=== PATIENT | female | born 1990 | race Two or more races ===

== ENCOUNTER 2019-02-03 20:15 | Outpatient (CLI) | payer SELFPAY ==
[~2019-02-03] VITALS: Ht 162.6 cm; Wt 83.8 kg
[2019-02-03 20:34] VITALS: BP 108/62; PULSE 75; RESP 17; Ht 162.6 cm; Wt 83.8 kg
--- NOTE | 2019-02-03 21:41 | PN ---
Triage Information Date/Time Reason for visit: DFM Weeks of Gestation 36 weeks and 6 days /Para Diabetes: none Hypertention: none Objective Vital Signs Date Temp Pulse Resp B/P (MAP) Pulse Ox O2 O2 Flow FiO2 Time Delivery Rate 02/03/19 98.1 75 17 108/62 Room Air 20:34 (77) Heart Rate: 120's Heart Rate Comments Reactive Exam Cervix closed Results/Medications Imaging Results BPP 04/15 Disposition: Discharge Assessment/Plan While being monitored, patient feels the baby move well. Follow up in office on 02/05/2019. kick count. RAMÓN BRAGG MD February 03, 2019 21:41
--- NOTE | 2019-02-03 23:38 | TRIAGE ---
OB Triage Datetime Report Generated by CPN: 02/03/2019 23:38 Datetime: 02/03/2019 21:37 Labor Evaluation Frequency: 4-7 Monitor Mode: External Duration (sec)2399: 50-90 Quality: Mild Resting Tone [place]: Relaxed Contraction Comments: PT DENIES FEELING UC'S Contraction Comments: TOCO REMOVED Heart Rate FHR Baseline Rate: 145 Monitor Mode: External US Variability: Moderate 6-25 bpm Accelerations: 15X15 Decelerations: None Category: Category I Comments: US REMOVED Datetime: 02/03/2019 21:00 Contraction Comments: TOCO REMOVED FOR ULTRASOUND Comments: UNABLE TO ASSESS; US REMOVED FOR ULTRASOUND Datetime: 02/03/2019 20:32 Time of Arrival: 02/03/2019 20:06 EGA: 36.6 Arrived By: Ambulatory Arrived From: Office Chief Complaint: DFM; PT ALSO STATES LOWER ABDOMINAL PRESSURE Movement: Decreased Contractions: Occasional Rupture of Membranes: Denies Vaginal Discharge: Present Recent Sexual Intercouse: Denies Abdominal Trauma: Not Applicable Patient Complaints: Other Datetime: 02/03/2019 20:30 Stage of : OB Triage Assessment Type: Triage Maternal Assessment Level of Consciousness: Fully Conscious DTR's/Clonus: DTRs 2+; No Clonus Headache: Denies Blurred Vision: No Respiratory Effort: Unlabored; Regular Rhythm; Equal Expansion Breath Sounds, Left: Clear and Equal Breath Sounds, Right: Clear and Equal Nausea/Vomiting: Denies RUQ Epigastric Pain: Denies Lower Extremities Edema: None Degree: None Upper Extremities Edema: None Degree: None Facial Edema: None Temperature Route: Oral Fall Risk Assessment History of Falling: (0) No Secondary Diagnosis: (0) No Ambulatory Aid: (0) Bedrest/Nurse Assist IV Therapy: (0) No Gait: (0) Normal/Bedrest/Immobile Mental Status: (0) Oriented to Own Ability Fall Score: 0 Fall Risk Score Definition: No Risk: No action required Pain Assessment Pain Scale: 6 Pain Presence: Constant Pain Type: Pressure Pain Location: Abdomen Datetime: 02/03/2019 20:28 Contraction Comments: TOCO APPLIED Comments: US APPLIED
== END 2019-02-03 21:43 | disposition home or self-care (01) ==
LOC: OBT 20:15 → L-D 20:18 → OBT 21:43
PROVIDERS: ATTEND Obstetrics & Gynecology
DX: O36.8130 Decreased fetal movements, third trimester, not applicable or unspecified (principal); Z3A.36 36 weeks gestation of pregnancy
CPT/HCPCS: 76818; G0463

== ENCOUNTER 2019-02-12 04:50 | Inpatient (IN) | payer SELFPAY ==
[~2019-02-12] VITALS: Ht 162.6 cm; Wt 85.5 kg
[2019-02-12] MEDS ORDERED: FERR325T5 PO (05:23)
[2019-02-12] MEDS ORDERED: PNV11TAB PO (05:23)
[2019-02-12 05:24] VITALS: Ht 162.6 cm; Wt 85.5 kg
[2019-02-12 05:25] VITALS: BP 97/68; PULSE 75; RESP 18
[2019-02-12] MEDS ORDERED: LACTATED RINGER'S 1,000 ML IV SCH ×2 (05:59→14:00)
[2019-02-12] MEDS ORDERED: CARBOPROST 250 MCG INJ IM PRN ×2 (06:00→14:00)
[2019-02-12] MEDS ORDERED: OXYTOCIN 30 UNITS/LR 500 ML IV PRN ×2 (06:00→14:00)
[2019-02-12] MEDS ORDERED: METHYLERGONOVINE 0.2 MG INJ IM PRN ×2 (06:00→14:00)
[2019-02-12] MEDS ORDERED: MISOPROSTOL 200 MCG TAB PR PRN ×2 (06:00→14:00)
[2019-02-12] MEDS ORDERED: OXYTOCIN 30 UNITS/LR 500 ML IV SCH ×2 (07:00→14:00)
[2019-02-12] MEDS ORDERED: CEFAZOLIN 2 GM/50 ML (PMX) 50 ML IVPB SCH (07:00)
--- NOTE | 2019-02-12 08:26 | HP ---
Date/Time of Note Date/Time of Note DATE: 02/12/19 TIME: 08:24 OB - History Hx of Present Chief Complaint: contractions Estimated Due Date: Feb 25, 2019 : 2 Para: 1 Spontaneous : 0 Therapeutic : 0 Care: Good Care Ultrasounds: Normal mid trimester US Obstetrical Complications: None Medical Complications: None Past Family/Social History * Past Medical, Surgical, Family and Obstetric Histories reviewed from chart. GBS Status: Negative OB Admission Exam Vital Signs Vital Signs Vital Signs Date Temp Pulse Resp B/P (MAP) Pulse Ox O2 O2 Flow FiO2 Time Delivery Rate 02/12/19 98.3 75 18 97/68 (78) Room Air 05:25 Physical Exam HEENT: WNL Heart: Rhythm Normal Lungs: Clear, Equal Abdomen: WNL Extremities: Normal Reflexes: Normal Cervical Dilatation: 2cm Effacement: 50% Station: -1 Membranes: Intact Heart Rate: 120's Accelerations: Accelerations Present Decelerations: No Decelerations Varibility: Moderate Contractions on Admission: < 5 Minutes Apart Last 72 hours Lab Results CBC & BMP 02/12/19 05:50 OB Assessment/Plan Reason for admission: section Plan: Section RAMÓN BRAGG MD Feb 12, 2019 08:26
[2019-02-12] MEDS ORDERED: AZITHROMYCIN 500MG/NS (PMX) 250 ML IVPB ONE (08:30)
--- NOTE | 2019-02-12 08:41 | PREAC ---
Date/Time of Note Date/Time of Note DATE: 02/12/19 TIME: 08:40 Anesthesia Eval and Record Evaluation Time Pre-Procedure Interview DATE: 02/12/19 TIME: 08:40 Age 28 Sex female NPO: 8 hrs Preoperative diagnosis previous c section Planned procedure repeat c section Past Medical History Past Medical History: None Surgery & Anesthesia Issues No known issue Meds Anticoagulation: No Beta Minal within 24 hr: No Reason Beta Minal not given: Pt. not on B-Minal Reported Medications Ferrous Sulfate (Ferrous Sulfate) 325 Mg Tablet.dr, 325 MG PO DAILY 02/12/19 [id number] ( ) 1 Each Tablet, 1 TAB PO DAILY, TAB 02/12/19 Current Medications Lactated Ringer's 1,000 ml @ 125 mls/hr Q8H IV Last administered on 02/12/19at 06:42; Admin Dose 125 MLS/HR; Start 02/12/19 at 05:59 Oxytocin/Lactated Ringer's 500 ml @ 0 mls/hr ONCE PRN IV .VAGINAL BLEEDING; Start 02/12/19 at 06:00 Methylergonovine Maleate (Methergine) 0.2 mg ONCE PRN IM .VAGINAL BLEEDING; Start 02/12/19 at 06:00 Carboprost Tromethamine (Hemabate) 250 mcg ONCE PRN IM .VAGINAL BLEEDING; Start 02/12/19 at 06:00 Misoprostol (Cytotec) 1,000 mcg ONCE PRN AR .VAGINAL BLEEDING; Start 02/12/19 at 06:00 Cefazolin Sodium/ Dextrose 50 ml @ 100 mls/hr ONCE IVPB ; Start 02/12/19 at 07:00 Oxytocin/Lactated Ringer's 500 ml @ 125 mls/hr POST IV ; Start 02/12/19 at 07:00 Azithromycin 250 ml @ 250 mls/hr ONCE ONCE IVPB ; Start 02/12/19 at 08:30; Stop 02/12/19 at 09:29 Meds reviewed: Yes Allergies Coded Allergies: No Known Allergy (Unverified , 02/12/19) Allergies Reviewed: Yes Labs/Studies Labs Reviewed: Reviewed by anesthesiologist Result Diagram: 02/12/19 0550 Laboratory Tests 02/12/19 05:50 Blood Bank Test 02/12/19 05:50 Antibody Screen NEGATIVE Blood Type A POSITIVE Rh Immune Globulin Candidate NO test: N/A Pre-procedure Exam Last vitals Vital Signs Date Temp Pulse Resp B/P (MAP) Pulse Ox O2 O2 Flow FiO2 Time Delivery Rate 02/12/19 98.3 75 18 97/68 (78) Room Air 05:25 Airway: Adequate mouth opening, Adequate thyromental dist Mallampati: Mallampati II Teeth: Normal Lung: Normal Heart: Normal ASA Physical Status ASA physical status: 2 Emergency: None Pre-operative Attestations Prior to commencing anesthesia and surgery, the patient was re-evaluated, there was verification of: *The patient's identity *The results of appropriate recent lab work and preoperative vital signs *The above evaluation not changing prior to induction *Anesthetic plan, risk benefits, alternative and complications discussed with patient/family; questions answered; patient/family understands, accepts and wishes to proceed. ROLAN NAJERA DO Feb 12, 2019 08:41
[2019-02-12] MEDS ORDERED: FENTAnyl 50 MCG/ML VIAL ONE (08:42)
[2019-02-12] MEDS ORDERED: morphine SULFATE/PF (10 MG/10 ML) INJ ONE (08:42)
[2019-02-12] MEDS ORDERED: ONDANSETRON 4 MG INJ ONE (08:55)
[2019-02-12] MEDS ORDERED: DEXAMETHASONE 4 MG/ML 1 ML INJ ONE (08:55)
[2019-02-12] MEDS ORDERED: FAMOTIDINE 20 MG INJ ONE (08:56)
[2019-02-12] MEDS ORDERED: DIPHENHYDRAMINE 50 MG INJ ONE (08:56)
[2019-02-12] MEDS ORDERED: ONDANSETRON 4 MG INJ IV PRN (09:00)
[2019-02-12] MEDS ORDERED: KETOROLAC 30 MG INJ IV PRN (09:00)
[2019-02-12] MEDS ORDERED: HYDROmorphONE 0.5 MG/0.5 ML SYG IV PRN ×2 (09:00)
[2019-02-12] MEDS ORDERED: DIPHENHYDRAMINE 50 MG INJ IV PRN (09:00)
[2019-02-12] MEDS ORDERED: ZOLPIDEM 5 MG TAB PO PRN (09:00)
[2019-02-12] MEDS ORDERED: NALOXONE (0.4 MG/ML) INJ IV PRN (09:00)
[2019-02-12] MEDS ORDERED: OXYTOCIN 30 UNITS/LR 500 ML IV ONE ×2 (09:12→09:51)
[2019-02-12] MEDS ORDERED: PROPOFOL 20 ML ONE (09:12)
[2019-02-12] MEDS ORDERED: PHENYLephrine (100 MCG/ML) 10ML SYG ONE (09:12)
[2019-02-12] MEDS ORDERED: MIDAZOLAM 1 MG/ML 2 ML INJ ONE (09:30)
--- NOTE | 2019-02-12 09:57 | PAC ---
Date/Time of Note Date/Time of Note DATE: 02/12/19 TIME: 09:57 Post-Anesthesia Notes Post-Anesthesia Note Last documented vital signs Vital Signs Date Temp Pulse Resp B/P (MAP) Pulse Ox O2 O2 Flow FiO2 Time Delivery Rate 02/12/19 98 75 18 95/66 Room Air 0957 Activity: WNL Respiratory function: WNL Cardiovascular function: WNL Mental status: Baseline Pain reasonably controlled: Yes Hydration appropriate: Yes Nausea/Vomiting absent: Yes ROLAN NAJERA DO Feb 12, 2019 09:57
[2019-02-12 13:30] VITALS: BP 95/51; PULSE 62; RESP 16
[2019-02-12] MEDS ORDERED: LANOLIN HPA 1 PKT TOP PRN (14:00)
[2019-02-12] MEDS ORDERED: OXYCODONE/ACETAMINOPHEN (5/325) TAB PO PRN (14:00)
[2019-02-12 15:42] VITALS: BP 96/61; PULSE 56; RESP 17
--- NOTE | 2019-02-12 17:45 | OPR ---
Operative Report Planned Procedure Procedure date Feb 12, 2019 Procedure(s) Repeat low transverse Performed by Ramón Bragg MD Driver Education Instructor: CAMRYN MCNALLY MD Anesthesiologist: ROLAN NAJERA DO Pre-procedure diagnosis 38+ weeks, previous and labor contractions [id number] Anesthesia Type: [id number] spinal Post-Procedure Post-procedure diagnosis Same Findings Live Baby, Apgars 9 and 9 Estimated Blood Loss: other (500 ml) Specimen(s) Placenta Grafts/Implant(s) none Complication(s) none Pt Condition post procedure: stable Disposition: PACU Procedure Description After spinal anesthesia had been dosed and tested, the patient was placed supine on the Operating Room table and prepped and draped in the usual sterile fashion for a section. A Pfannenstiel incision was made through the abdomen and carried down to the level of the fascia. The fascia was incised transversely and then the rectus muscle was dissected off the fascia and split bluntly in the midline. The peritoneum was the entered bluntly. The bladder flap was created and then a low segment transverse incision was made with a knife on the uterus until the amniotic fluid was encountered. The incision was widened with bandage scissors. A hand was inserted elevating the vertex and then the head delivered with assistance of fundal pressure.. The nares and oropharynx were bulb suctioned, and the remainder of the was delivered out of the maternal abdomen. . The cord was doubly clamped and cut, and the infant handed off to the awaiting resuscitation team including who was present for delivery. The placenta was then manually extracted and the interior uterus was cleaned with a dry lap sponge. The uterus was exteriorized, and the incision of the uterus closed with a running interlocking stitch of Monocryl suture. The uterus was replaced in the maternal abdomen. The abdomen was cleared of clots. The peritoneum was closed with 2-0 Vicryl. The fascia was closed with a running suture of #1 Vicryl suture meeting in the midline. The subcutaneous tissue was made hemostatic with Bovie cautery, and the skin approximated using amrit. The patient tolerated the procedure well. All sponge and instrument counts were correct. She was taken to the recovery room in stable condition. RAMÓN BRAGG MD Feb 12, 2019 17:44
[2019-02-12] MEDS: SENNA/DOCUSATE NA (8.6MG/50MG) TAB PO SCH (21:00)
[2019-02-12] MEDS: LACTATED RINGER'S 1,000 ML IV SCH (23:20)
[2019-02-13 04:00] VITALS: BP 98/52; PULSE 62; RESP 18
[2019-02-13] MEDS: LACTATED RINGER'S 1,000 ML IV SCH (07:30)
[2019-02-13 07:50] VITALS: BP 93/54; PULSE 77; RESP 18
[2019-02-13] MEDS: SENNA/DOCUSATE NA (8.6MG/50MG) TAB PO SCH ×2 (08:58→21:33)
[2019-02-13] MEDS: OXYCODONE/ACETAMINOPHEN (5/325) TAB PO PRN (08:58)
[2019-02-13] MEDS: IBUPROFEN 800 MG TAB PO SCH ×2 (13:53→21:37)
[2019-02-13 15:18] VITALS: BP 95/61; PULSE 86; RESP 18
--- NOTE | 2019-02-13 15:34 | DELSUM ---
Delivery Summary A-C Datetime Report Generated by CPN: 02/13/2019 15:34 DELIVERY PERSONNEL Tea Leaf Reader: Erickgett, Tarah MATERNAL INFORMATION Delivery Anesthesia: Spinal Medications in Delivery: pitocin Delivery QBL (ml): 500 Placenta Cultured: No Maternal Complications: Other Other Maternal Complications: ovarian cyst removal, breast augmentation, hx of pp depression w last preg, pc/s for macro in [place] RN Comments: baby born with left ft turned. parents told prenatally via ultasound. LABOR SUMMARY EDC: 02/25/2019 00:00 No. Babies in Womb: 1 Attempted: No Labor Anesthesia: None LABOR INFORMATION Reason for Induction: Not Applicable Onset of Labor: 02/12/2019 03:00 Oxytocin: N/A Group B Beta Strep: Negative Antibiotics # of Doses: 1 Antibiotics Time of Last Dose: 02/12/2019 08:00 Steroids Given: None Reason Steroids Not Administered: Not Applicable MEMBRANES Membranes Rupture Method: Artificial Rupture of Membranes: 02/12/2019 09:16 Length of Rupture (hr): 0.02 Amniotic Fluid Color: Clear Amniotic Fluid Amount: Moderate Amniotic Fluid Odor: Normal STAGES OF LABOR Stage 3 hr: 0 Stage 3 min: 0 Total Time in Labor hr: 6 Total Time in Labor min: 17 CSECTION DELIVERY Primary Indication: Repeat Elective Secondary Indication: Repeat Elective CSection Urgency: Elective CSection Incidence: Repeat Labor: Labor Elective: Elective CSection Incision: Lower Uterine Transverse BABY A INFORMATION Delivery Date/Time: 02/12/2019 09:17 Method of Delivery: Born in Route : No : N/A Forceps: N/A Vacuum Extraction: N/A Shoulder Dystocia : No SHOULDER DYSTOCIA BABY A Infant Delivery Date/Time: 02/12/2019 09:17 PRESENTATION/POSITION BABY A Presentation: Cephalic Cephalic Presentation: Vertex Vertex Position: Left Occipital Anterior Breech Presentation: N/A PLACENTA INFORMATION BABY A Placenta Delivery Time : 02/12/2019 09:17 Placenta Method of Delivery: Manual Removal Placenta Status: Delivered SCORES BABY A Heart Rate 1 min: >100 bpm Resp Effort 1 min: Good Cry Reflex Irritability 1 min: Cough/Sneeze/Pulls Away Muscle Tone 1 min: Active Motion Color 1 min: Blue/Pale Resuscitation Effort 1 min: Tactile Stimulation; Oxygen SCORE 1 MIN: 8 Heart Rate 5 min: >100 bpm Resp Effort 5 min: Good Cry Reflex Irritability 5 min: Cough/Sneeze/Pulls Away Muscle Tone 5 min: Active Motion Color 5 min: Body [place], Extremit Blue Resuscitation Effort 5 min: Tactile Stimulation; Oxygen SCORE 5 MIN: 9 INFORMATION BABY A Gestational Age at Delivery: 38.1 Gestational Status: Early Term- 37- 38.6 Weeks Infant Outcome : Liveborn Condition : Stable Infant Sex: Female IDENTIFICATION/MEDS BABY A ID Band Number: [id number] ID Band Location: Right Leg; Left Arm Sensor Applied: Yes Sensor Number: [id number] Sensor Location : Cord Clamp Vitamin K Given : Not Given Erythromycin Given: Not Given WEIGHT/LENGTH BABY A Infant Birthweight (gm): 3435 Weight (lb): 7 Weight (oz): 9 Length (in): 20.00 Infant Length (cm): 50.80 CORD INFORMATION BABY A No. Cord Vessels: 3 Nuchal Cord : N/A Cord Blood Taken: Yes Suction: Mouth; Nose ASSESSMENT BABY A Complications: Other Complications- Other: left foot turned in Physical Findings at Delivery: Other Physical Findings- Other: left foot turned in at odd angle, dr told Respirations: Appears Normal Software Quality Automation Engineer/ALS Called : Yes Infant Care By: lawrence corral, [place] [facility] nicu Transferred To: Remains with Mother
--- NOTE | 2019-02-13 16:24 | QN ---
Documentation Comment No complaint Afebrile VSS Abdomen soft ND POD #1 Stable Ambulate Advance diet Fe supplement. RAMÓN BRAGG MD Feb 13, 2019 16:23
[2019-02-13 19:30] VITALS: BP 102/68; PULSE 80; RESP 18
[2019-02-13] MEDS: FERROUS SULFATE (EC) 325 MG TAB PO SCH (21:33)
[2019-02-14] MEDS: OXYCODONE/ACETAMINOPHEN (5/325) TAB PO PRN (03:19)
[2019-02-14 03:31] VITALS: BP 98/62; PULSE 70; RESP 18
[2019-02-14] MEDS: IBUPROFEN 800 MG TAB PO SCH ×3 (05:46→22:35)
[2019-02-14 07:35] VITALS: BP 101/73; PULSE 74; RESP 18
[2019-02-14] MEDS: FERROUS SULFATE (EC) 325 MG TAB PO SCH ×3 (09:08→21:30)
[2019-02-14] MEDS: SENNA/DOCUSATE NA (8.6MG/50MG) TAB PO SCH ×2 (09:08→21:30)
[2019-02-14 15:50] VITALS: BP 95/68; PULSE 63; RESP 18
--- NOTE | 2019-02-14 18:28 | QN ---
Documentation Comment No complaint Afebrile VSS abdomen soft Incision intact Stable Continue present care RAMÓN BRAGG MD Feb 14, 2019 18:28
[2019-02-14] MEDS ORDERED: MAGNESIUM HYDROXIDE 30ML CUP PO ONE (18:30)
[2019-02-14 19:30] VITALS: BP 103/62; PULSE 72; RESP 18
[2019-02-15 04:24] VITALS: BP 98/54; PULSE 62; RESP 18
[2019-02-15] MEDS: IBUPROFEN 800 MG TAB PO SCH ×2 (05:42→13:39)
[2019-02-15 08:00] VITALS: BP_SYST 94; BP_DIAS 50; BP_DIAS 55; PULSE 59; RESP 18
[2019-02-15] MEDS ORDERED: DIPHTH/TET/ACEL PERTUSS (ADULT) 0.5 ML VIAL IM* ONE (09:00)
[2019-02-15] MEDS: SENNA/DOCUSATE NA (8.6MG/50MG) TAB PO SCH (09:39)
[2019-02-15] MEDS: FERROUS SULFATE (EC) 325 MG TAB PO SCH ×2 (09:39→12:20)
[2019-02-15] MEDS: OXYCODONE/ACETAMINOPHEN (5/325) TAB PO PRN (12:22)
--- NOTE | 2019-02-15 13:54 | DS ---
Date/Time of Note Date/Time of Note DATE: 02/15/19 TIME: 13:54 Obstetrical Discharge Record Final Diagnosis Final Diagnosis: Term delivered Section Section: Repeat Condition on Discharge Physical Assessment Voiding: Yes Bowel Movement: Yes Breast: Soft, non-tender, Filling Fundus: Firm Abdomen and Incision: Incision intact Calf Tenderness: No Patient Condition: Stable RAMÓN BRAGG MD Feb 15, 2019 13:54
--- NOTE | 2019-02-16 18:58 | DELSUM ---
Delivery Summary A-C Datetime Report Generated by CPN: 02/16/2019 18:58 DELIVERY PERSONNEL Outside Plant Engineer: Erickgett, Tarah MATERNAL INFORMATION Delivery Anesthesia: Spinal Medications in Delivery: pitocin Delivery QBL (ml): 500 Placenta Cultured: No Maternal Complications: Other Other Maternal Complications: ovarian cyst removal, breast augmentation, hx of pp depression w last preg, pc/s for macro in [place] RN Comments: baby born with left ft turned. parents told prenatally via ultasound. LABOR SUMMARY EDC: 02/25/2019 00:00 No. Babies in Womb: 1 Attempted: No Labor Anesthesia: None LABOR INFORMATION Reason for Induction: Not Applicable Onset of Labor: 02/12/2019 03:00 Oxytocin: N/A Group B Beta Strep: Negative Antibiotics # of Doses: 1 Antibiotics Time of Last Dose: 02/12/2019 08:00 Steroids Given: None Reason Steroids Not Administered: Not Applicable MEMBRANES Membranes Rupture Method: Artificial Rupture of Membranes: 02/12/2019 09:16 Length of Rupture (hr): 0.02 Amniotic Fluid Color: Clear Amniotic Fluid Amount: Moderate Amniotic Fluid Odor: Normal STAGES OF LABOR Stage 3 hr: 0 Stage 3 min: 0 Total Time in Labor hr: 6 Total Time in Labor min: 17 CSECTION DELIVERY Primary Indication: Repeat Elective Secondary Indication: Repeat Elective CSection Urgency: Elective CSection Incidence: Repeat Labor: Labor Elective: Elective CSection Incision: Lower Uterine Transverse BABY A INFORMATION Delivery Date/Time: 02/12/2019 09:17 Method of Delivery: Born in Route : No : N/A Forceps: N/A Vacuum Extraction: N/A Shoulder Dystocia : No SHOULDER DYSTOCIA BABY A Infant Delivery Date/Time: 02/12/2019 09:17 PRESENTATION/POSITION BABY A Presentation: Cephalic Cephalic Presentation: Vertex Vertex Position: Left Occipital Anterior Breech Presentation: N/A PLACENTA INFORMATION BABY A Placenta Delivery Time : 02/12/2019 09:17 Placenta Method of Delivery: Manual Removal Placenta Status: Delivered SCORES BABY A Heart Rate 1 min: >100 bpm Resp Effort 1 min: Good Cry Reflex Irritability 1 min: Cough/Sneeze/Pulls Away Muscle Tone 1 min: Active Motion Color 1 min: Blue/Pale Resuscitation Effort 1 min: Tactile Stimulation; Oxygen SCORE 1 MIN: 8 Heart Rate 5 min: >100 bpm Resp Effort 5 min: Good Cry Reflex Irritability 5 min: Cough/Sneeze/Pulls Away Muscle Tone 5 min: Active Motion Color 5 min: Body [place], Extremit Blue Resuscitation Effort 5 min: Tactile Stimulation; Oxygen SCORE 5 MIN: 9 INFORMATION BABY A Gestational Age at Delivery: 38.1 Gestational Status: Early Term- 37- 38.6 Weeks Infant Outcome : Liveborn Condition : Stable Infant Sex: Female IDENTIFICATION/MEDS BABY A ID Band Number: [id number] ID Band Location: Right Leg; Left Arm Sensor Applied: Yes Sensor Number: [id number] Sensor Location : Cord Clamp Vitamin K Given : Not Given Erythromycin Given: Not Given WEIGHT/LENGTH BABY A Infant Birthweight (gm): 3435 Weight (lb): 7 Weight (oz): 9 Length (in): 20.00 Infant Length (cm): 50.80 CORD INFORMATION BABY A No. Cord Vessels: 3 Nuchal Cord : N/A Cord Blood Taken: Yes Suction: Mouth; Nose ASSESSMENT BABY A Complications: Other Complications- Other: left foot turned in Physical Findings at Delivery: Other Physical Findings- Other: left foot turned in at odd angle, dr told Respirations: Appears Normal [employer] Registrar/ALS Called : Yes Infant Care By: lawrence corral, [place] [facility] nicu Transferred To: Remains with Mother
== END 2019-02-15 18:56 | disposition home or self-care (01) | DRG 788 ==
LOC: L-D 04:50 → OBT 04:50 → L-D 05:36 → OBT 05:36 → L-D 08:30 → MS1 15:29 → PP1 02-13 20:25
PROVIDERS: ADMIT Obstetrics & Gynecology; ATTEND Obstetrics & Gynecology
PROC: 10D00Z1 Extraction of Products of Conception, Low, Open Approach (ICD-10-PCS; principal; 2019-02-12)
DX: O65.5 Obstructed labor due to abnormality of maternal pelvic organs (principal); O34.211 Maternal care for low transverse scar from previous cesarean delivery; Z3A.38 38 weeks gestation of pregnancy; Z37.0 Single live birth
CPT/HCPCS: 85025; 85610; 85730; 86592; 86850; 86900; 86901; 88307; 90715; 99464; G0463; J0690; J1100; J1200; J2250; J2274; J2370; J2405; J2590; J3010; J7120